=== PATIENT | male | born 1990 | race Caucasian/White ===

== ENCOUNTER 2018-12-25 19:53 | Emergency (ER) | payer OTHER ==
--- NOTE | 2018-12-25 19:43 | EDPHY ---
H & P Time Seen by Provider: 12/25/18 19:53 Constitutional: Initial Vital Signs Temperature (C) 36.7 C 12/25/18 20:17 Heart Rate 92 12/25/18 20:17 Respiratory Rate 18 12/25/18 20:17 Blood Pressure 156/90 H 12/25/18 20:17 O2 Sat (%) 95 12/25/18 20:17 O2 Delivery Mode Room Air Allergies/Adverse Reactions: azithromycin [From Zithromax] Allergy (Verified 05/28/11 23:33) Home Medications: Medication Instructions Recorded Lacosamide [Vimpat] 250 mg PO BID 05/28/11 lamOTRIGine [LamICTAL] 250 mg PO BID 05/28/11 Ativan 12/25/18 Medical Decision Making ED Course/Re-evaluation: CHIEF COMPLAINT: Seizure HISTORY OF PRESENT ILLNESS: The patient is a 28 y/o male with a history of seizures arriving via EMS for a witnessed seizure today. The patient is followed by Dr. Jett, neurologist at [facility] and takes Lamictal as prescribed. Today the patient felt an aura all day. The patient was a was at gas station with friends when he had a 3 minute seizure. Bystanders report minimal extremity shaking during the seizure. It is unknown if this patient was helped to the ground or hit his head. EMS gave the patient 4mg IV Zofran for nausea. He denies drinking alcohol for 3 years. Although the patient states he has been sober. He reports that he uses PCP, Myrna, acid and marijuana and used to use Ketamine. Currently he has a headache and some neck stiffness. He is also feeling shaky and dehydrated. Patient's friend reports that the patient has not been sleeping well lately. No fever, body aches, lightheadedness, chest pain, heart palpitations, shortness of breath , cough, abdominal pain, urinary or bowel complaints, numbness, paresthesias. REVIEW OF SYSTEMS: A comprehensive 10 system review of systems is otherwise negative aside from elements mentioned in the history of present illness and medical decision making. PHYSICAL EXAM: HR, BP, O2 Sat, RR. Temp noted General Appearance: Tremulous, alert, well hydrated, appropriate, and non- toxic appearing. Head: Atraumatic without scalp tenderness or obvious injury Eyes: Pupils equal, round, reactive to light and accommodation, EOMI, no trauma , no injection. Ears: Clear bilaterally, no perforation, normal landmarks Nose: Atraumatic, no rhinorrhea, clear. Throat: There is no erythema or exudates, no lesions, normal tonsils, mucus membranes moist. Neck: Supple, 2+ carotid upstroke, nontender, no lymphadenopathy. Respiratory: No retractions, no distress, no wheezes, and no accessory muscle use. Lungs are clear to auscultation bilaterally. Cardiovascular: Regular rate and rhythm, no murmurs, rubs, or gallops. Bilateral carotid, radial, dorsalis pedis, and posterior tibial pulses intact. Good capillary refill all extremities. Gastrointestinal: Abdomen is soft, nontender, non-distended, no masses, no rebound, no guarding, no peritoneal signs. Musculoskeletal: Normal active ROM of all extremities, atraumatic. Neurological: Alert, appropriate, and interactive. The patient has normal DTRs and non-focal cranial nerves, motor, sensory, and cerebellar exam. Skin: No rashes, good turgor, no nodules on palpation. Past medical history: Seizure disorder Past surgical history: Denies Family history: Denies Social history: Lives in [place], single, student DIAGNOSTICS/PROCEDURES/CRITICAL CARE TIME: Not indicated. DIFFERENTIAL DIAGNOSIS: The differential diagnosis for the patient's seizure included but was not limited to electrolyte abnormality, alcohol withdrawal, medication noncompliance , head injury, BRYOLOGIST structural abnormality, and break through seizure. MEDICAL DECISION MAKING: The patient is a 28 y/o male with a history of seizures arriving via EMS for a witnessed seizure today. The patient is followed by Dr. Jett, neurologist at [facility] and takes Lamictal as prescribed. Today the patient felt an aura all day and then had a 3 minute seizure. He denies drinking alcohol for 3 years. Although the patient states he has been sober. He reports that he uses PCP, Myrna, acid and marijuana and used to use Ketamine. Currently he has a headache and some neck stiffness, and dehydrated. Patient is tremulous on exam. Labs ordered; 1mg IV Ativan and 1L IV NS administered. Imaging studies are not indicated. 2036: Reassessed patient and discussed normal laboratory findings. I suspect he had a seizure due to his illicit - Data Points Laboratory Results: Laboratory Results 12/25/18 20:00 12/25/18 20:00 12/25/18 12/25/18 20:00 20:00 WBC 16.96 10^3/uL H 10^3/uL (3.80-9.50) RBC 6.01 10^6/uL 10^6/uL (4.40-6.38) Hgb 16.8 g/dL g/dL (13.7-17.5) Hct 53.3 % H % (40.0-51.0) MCV 88.7 fL fL (81.5-99.8) MCH 28.0 pg pg (27.9-34.1) MCHC 31.5 g/dL L g/dL (32.4-36.7) RDW 15.5 % H % (11.5-15.2) Plt Count 958 10^3/uL H 10^3/uL (150-400) MPV 9.7 fL fL (8.7-11.7) Neut % (Auto) Not Reported Lymph % (Auto) Not Reported Blanco % (Auto) Not Reported Eos % (Auto) Not Reported Baso % (Auto) Not Reported Nucleat RBC Rel Count Not Reported Absolute Neuts (auto) Not Reported Absolute Lymphs (auto) Not Reported Absolute Monos (auto) Not Reported Absolute Eos (auto) Not Reported Absolute Basos (auto) Not Reported Absolute Nucleated RBC Not Reported Immature Gran % Not Reported Seg Neutrophils % 61.0 % % Band Neutrophils % 0.0 % % Lymphocytes % 30.0 % % Monocytes % 9.0 % % Eosinophils % 0.0 % % Basophils % 0.0 % % Metamyelocytes % 0.0 % % Myelocytes % 0.0 % % Promyelocytes % 0.0 % % Blast Cells % 0.0 % % Immature Gran # Not Reported Absolute Seg Neuts 10.35 10^3/uL H 10^3/uL (1.70-6.50) Absolute Band Neuts 0.00 10^3/uL 10^3/uL (0.00-0.70) Absolute Lymphocytes 5.09 10^3/uL H 10^3/uL (1.00-3.00) Absolute Monocytes 1.53 10^3/uL H 10^3/uL (0.30-0.80) Absolute Eosinophils 0.00 10^3/uL L 10^3/uL (0.03-0.40) Absolute Basophils 0.00 10^3/uL L 10^3/uL (0.02-0.10) Absolute Metamyelocyte 0.00 10^3/mL 10^3/mL (0.00-0.00) Absolute Myelocytes 0.00 10^3/mL 10^3/mL (0.00-0.00) Absolute Promyelocytes 0.00 10^3/uL 10^3/uL (0.00-0.00) Absolute Plasma Cells 0.00 10^3/uL 10^3/uL (0.00-0.00) Nucleated RBCs 0 /100 WBC /100 WBC (0-0) RBC/WBC/PLT Morphology NORMAL (NORMAL) Absolute Blast Cells 0.00 10^3/uL 10^3/uL (0.00-0.00) Plasma Cells % 0.0 % % Platelet Estimate INCREASED H (ADEQ) Sodium 135 mEq/L mEq/L (135-145) Potassium 5.8 mEq/L H mEq/L (3.5-5.2) Chloride 99 mEq/L mEq/L (97-110) Carbon Dioxide 16 mEq/l L mEq/l (22-31) Anion Gap 20 mEq/L H mEq/L (6-14) BUN 15 mg/dL mg/dL (7-23) Creatinine 1.0 mg/dL mg/dL (0.7-1.3) Estimated GFR > 60 Glucose 100 mg/dL mg/dL (70-100) Calcium 9.8 mg/dL mg/dL (8.5-10.4) Medications Given: Discontinued Medications Sodium Chloride (Ns) 1,000 mls @ 0 mls/hr IV EDNOW ONE; Wide Open PRN Reason: Protocol Stop: 12/25/18 20:10 Last Admin: 12/25/18 20:15 Dose: 1,000 mls Lorazepam (Ativan Injection) 1 mg IVP EDNOW ONE Stop: 12/25/18 20:02 Last Admin: 12/25/18 20:04 Dose: 1 mg Departure - Departure Disposition: Home, Routine, Self-Care Clinical Impression: Seizure disorder Condition: Good Instructions: Epilepsy (ED), Nonepileptic Seizures (ED) Additional Instructions: 1. Stop abusing illicit drugs. 2. Do not drive until you follow up with your neurologist. 3. Follow up with your neurologist within 72 hours to discuss your Lamictal dose. 4. Return to the Emergency Department for severe headache, vomiting, vision changes, confusion, fever or other concerns. Referrals: Balwinder Zamarripa MD [Medical Doctor] - As per Instructions Report Scribed for: Rashawn Robledo Report Scribed by: Deloris Livingston Date of Report: 12/25/18 Time of Report: 20:57
[2018-12-25] MEDS ORDERED: LORazepam 2 MG/ML INJ IVP ONE (20:01)
[2018-12-25] MEDS ORDERED: LORazepam 2 MG/ML INJ ONE (20:02)
[2018-12-25] MEDS ORDERED: NS 1,000 ML IV ONE (20:09)
[2018-12-25 20:15] LABS: PLATELET COUNT 958 10^3/uL (150-400)
[2018-12-25 21:16] VITALS: BP 157/102
== END 2018-12-25 21:15 | disposition home or self-care (01) ==
LOC: EDUNIT#
DX: G40.409 Other generalized epilepsy and epileptic syndromes, not intractable, without status epilepticus (principal); E86.9 Volume depletion, unspecified; Z79.899 Other long term (current) drug therapy
CPT/HCPCS: 96374; J2060